=== PATIENT | female | born 1980 | race Caucasian/White ===

== ENCOUNTER → 2017-05-30 | Outpatient (CLI) | payer BC ==
[2017-05-30 13:03] LABS: Basophils % (A) 0 %; CH 32.2; CHCM 34.3; Eosinophils # (A) 0.2 k/uL (0-0.7); Eosinophils % (A) 2 %; HCT 46.4 % (34.0-46.0); HDW 2.28; HGB 15.2 gm/dL (11.4-16.0); Luc # (Auto) 0.19; Luc % (Auto) 2; Lymphocytes # (A) 2.9 k/uL (1.0-4.8); Lymphocytes % (A) 33 %; MCH 30.8 pg (25.0-35.0); MCHC 32.7 g/dL (31.0-37.0); Mean Platelet Volume 10.1; Monocytes # (A) 0.5 k/uL (0-1.0); Monocytes % (A) 5 %; Neutrophils # (A) 5.2 k/uL (1.3-7.7); Neutrophils % (A) 58 %; RBC 4.93 m/uL (3.80-5.40); RDW 13.8 % (11.5-15.5)
[2017-05-30 13:06] LABS: AST 17 U/L (14-36); Alkaline Phosphatase 71 U/L (38-126); Amylase 57 U/L (30-110); Blood Urea Nitrogen 13 mg/dL (7-17); Calcium 9.3 mg/dL (8.4-10.2); Chloride 109 mmol/L (98-107); Glucose 83 mg/dL (74-99); Non-African American GFR(MDRD) >60 (>60 ml/min/1.73 sqM); Potassium 4.1 mmol/L (3.5-5.1); Sodium 140 mmol/L (137-145); Total Bilirubin 0.4 mg/dL (0.2-1.3); Total Protein 7.2 g/dL (6.3-8.2)
[2017-05-30 13:14] LABS: ALT 34 U/L (9-52); Anion Gap 10 mmol/L; Carbon Dioxide 21 mmol/L (22-30)
--- NOTE | 2017-05-30 13:45 | US ---
EXAMINATION TYPE: US abdomen complete DATE OF EXAM: 05/30/2017 COMPARISON: NONE CLINICAL HISTORY: 37-year-old female R10.9 Abdominal Pain. Pt states ABD pain and vomiting TECHNIQUE: Multiple sonographic images of the abdomen are obtained. FINDINGS: Liver Length: 12.3 cm Gallbladder Wall: 0.5 cm CBD: 0.3 cm Spleen: 9.6 cm Right Kidney: 11.7 x 5.3 x 5.8 cm Left Kidney: 12.2 x 5.3 x 5.5 cm Pancreas: Only a small portion of the pancreatic neck is visualized. Remainder suboptimally visualiz ed secondary to shadowing from bowel gas. Liver: Somewhat hypoechoic. This may be on a technical basis. Gallbladder: While there is no abnormal gallbladder distention, numerous calculi fill the gallbladde r lumen. There is mild gallbladder wall thickening. No pericholecystic fluid. Evidence for sonographic Cooley's sign: Yes CBD: wnl Spleen: wnl Right Kidney: wnl Left Kidney: wnl Upper IVC: wnl Abd Aorta: wnl IMPRESSION: 1. Somewhat hypoechoic appearance to the liver may be on a technical basis. Correlate to exclude hepa titis. 2. Cholelithiasis with numerous calculi within the gallbladder. There is gallbladder wall thickening and positive sonographic Cooley sign. 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 HIDA scan if further imaging evaluation is indicated.
[2017-05-30 14:43] LABS: Erythrocyte Sedimentation Rate 8 mm/hr (0-20)
== END ==
LOC: RADUSWWP 12:20
PROVIDERS: ATTEND Family Medicine
DX: K80.20 Calculus of gallbladder without cholecystitis without obstruction (principal); K82.9 Disease of gallbladder, unspecified
CPT/HCPCS: 36415; 76700; 80053; 82150; 83690; 85025; 85652

== ENCOUNTER 2017-06-20 11:26 | Day surgery (SDC) | payer BC ==
[2017-06-12 09:13] VITALS: BMI 36.4
[~2017-06-20 11:26] MED LIST: DEXAMETHASONE SOD PHOSPHATE 10 MG/ML 1 ML VIAL IV ONE; HYDROmorphone 1 MG/ML 1 ML SYRINGE IVP PRN; LACTATED RINGERS 1,000 ML IV SCH; MIDAZOLAM 2 MG/2 ML VIAL IV PRN; ONDANSETRON 4 MG/2 ML VIAL IVP ONE; SCOPOLAMINE 1.5MG/72HR PATCH TRANSDERM ONE; ceFAZolin 2 GM in SODIUM CHLORIDE 0.9% 100 ML IVPB ONE
[2017-06-20 13:21] VITALS: TEMP 98.3
[2017-06-20] MEDS: LIDOCAINE 1% 20 ML VIAL (10MG/ML) FOR IV START INTRADERMA PRN ×2 (13:23→13:24)
[2017-06-20] MEDS ORDERED: LACTATED RINGERS 1,000 ML IV ONE ×2 (13:24→15:48)
[2017-06-20] MEDS ORDERED: HEPARIN SODIUM,PORCINE 5,000 UNIT/ML 1 ML VIAL SQ ONE (13:25)
[2017-06-20] MEDS ORDERED: HYDROmorphone (PF) 1 MG/ML ONE (14:05)
[2017-06-20] MEDS ORDERED: SUCCINYLCHOLINE CHLORIDE 100 MG/5 ML SYR IV ONE (14:05)
[2017-06-20] MEDS ORDERED: PROPOFOL 10 MG/ML 20 ML VIAL IV ONE (14:05)
[2017-06-20] MEDS ORDERED: GLYCOPYRROLATE 0.2 MG/ML 2 ML VIAL ONE (14:05)
[2017-06-20] MEDS ORDERED: ROCURONIUM BROMIDE 10 MG/ML 10 ML VIAL IV ONE (14:05)
[2017-06-20] MEDS ORDERED: LIDOCAINE 1% INJ 10MG/ML (20 ML MDV) ONE (14:05)
[2017-06-20] MEDS ORDERED: fentaNYL (PF) 50 MCG/ML 2 ML AMP ONE (14:05)
[2017-06-20] MEDS ORDERED: PHENYLEPHRINE-0.9% NACL SYG 1 MG/10 ML SYRINGE ONE (14:05)
[2017-06-20] MEDS ORDERED: NEOSTIGMINE 1 MG/ML 10 ML VIAL ONE (14:05)
[2017-06-20] MEDS ORDERED: LABETALOL 5 MG/ML VIAL MDV ONE (14:05)
[2017-06-20] MEDS ORDERED: MIDAZOLAM 2 MG/2 ML VIAL ONE (14:05)
[2017-06-20] MEDS ORDERED: BUPIVACAINE-EPI 0.5%-1:200,000 10 ML VIAL SQ ONE (14:34)
--- NOTE | 2017-06-20 16:24 | P.OP ---
Date of Procedure: 06/20/17 Preoperative Diagnosis: Chronic choelcystitis Postoperative Diagnosis: Chronic choelcystitis Procedure(s) Performed: Robot assisted laparoscpic choelcystectomy Implants: Anesthesia: GETA Pathology: other Indications for Procedure: Operative Findings: Description of Procedure: Patient is a 37-year-old female who presented with right upper quadrant pain and a clinical diagnosis of chronic cholecystitis was made. After appropriate informed consent and answering all the patient's questions patient taken the operating placement position and given general anesthesia with endotracheal intubation. After an unsuccessful attempt to use the Veress needle for insufflation at the [place] Optiview technique was used to enter the abdominal cavity. Once the abdomen insufflated 5 mm Optiview was used to enter the abdominal cavity through the left upper quadrant incision. Three 8 mm ports were then placed for the robot in the left upper quadrant and right upper quadrant. 12 mm camera port was placed supraumbilically to the right side. Once ports were then placed the patient was placed in appropriate position of left side down and reverse Trendelenburg. The robot was docked and Prograsp was taken in arm 3, cardiere in arm 2. Camera was through the 12 mm umbilical port site. And a hook cautery was taken in the arm 1. Gallbladder was retracted cephalad and superiorly. Inflammatory adhesions were taken down with the help of electrocautery. Appropriate critical view was obtained in cystic duct and artery were isolated. There was moderate amount of bleeding from the posterior branch of the cystic artery, which was controlled with the help of 4 x 4 and pressure. He was further controlled with the help of a cleft and electrocautery. Once that was done 2 clips proximally and 1 distally were plced in the artery and cystic duct and then and transected sharply with the help of scissors. The gallbladder was then taken off the gallbladder fossa with the help of electrocautery. Gallbladder was then placed in Endo Catch bag and removed through 12 port site after undocking the robot. Abdomen was then again visualized and completely irrigated and sucked dry. 12 mm port site was closed with the help of a Jer Bird under direct laparoscopic view using 0 Vicryl. At this point the procedure was terminated and all ports were removed. Local anesthesia infiltrated into the incisions skin was closed with 4 -0 Monocryl and Dermabond was applied. Patient is tolerated the porcedure well with no complications. She was extubated and taken to recovery room in stable condition.
[2017-06-20 16:38] VITALS: RESP 16
[2017-06-20] MEDS ORDERED: IBUPROFEN 200 MG TAB PO ONE (17:02)
[2017-06-20 17:20] VITALS: BP 114/64; PULSE 67
== END 2017-06-20 18:24 | disposition home or self-care (01) ==
LOC: OR 11:26
PROVIDERS: ATTEND Surgery
DX: K80.10 Calculus of gallbladder with chronic cholecystitis without obstruction (principal); J45.909 Unspecified asthma, uncomplicated; F17.200 Nicotine dependence, unspecified, uncomplicated; E88.81 Metabolic syndrome and other insulin resistance; Z79.899 Other long term (current) drug therapy; Z88.5 Allergy status to narcotic agent
CPT/HCPCS: 47562; S2900; 81025; 88304

== ENCOUNTER → 2018-12-02 | Outpatient (CLI) | payer BC ==
--- NOTE | 2018-12-03 08:33 | MM ---
Reason for exam: screening (asymptomatic). Last mammogram was performed 2 years and 8 months ago. History: Patient is nulliparous. Took hormonal contraceptives for 15 years. Took progesterone for 7 years. Physical Findings: A clinical breast exam by your physician is recommended on an annual basis and results should be correlated with mammographic findings. MG 3D Screening Mammo W/Cad Bilateral CC and MLO view(s) were taken. Prior study comparison: March 28, 2016, mammogram, performed at [facility]. September 06, 2015, mammogram, performed at [facility]. There are scattered fibroglandular densities. Benign appearing skin calcifications along the right infra mammary fold. No suspicious abnormality. No significant changes when compared with prior studies. ASSESSMENT: Benign, BI-RAD 2 RECOMMENDATION: Routine screening mammogram of both breasts in 1 year.
== END | disposition home or self-care (01) ==
LOC: RADMAMWWP 09:37
PROVIDERS: ATTEND Obstetrics & Gynecology
DX: Z12.31 Encounter for screening mammogram for malignant neoplasm of breast (principal)
CPT/HCPCS: 77063; 77067

== ENCOUNTER → 2020-04-13 | Outpatient (CLI) | payer BC ==
--- NOTE | 2020-04-14 11:16 | MM ---
Reason for exam: screening (asymptomatic). Last mammogram was performed 1 year and 4 months ago. History: Patient is nulliparous. Took hormonal contraceptives for 15 years. Took progesterone for 7 years. Physical Findings: A clinical breast exam by your physician is recommended on an annual basis and results should be correlated with mammographic findings. MG 3D Screening Mammo W/Cad Bilateral CC and MLO view(s) were taken. Prior study comparison: December 02, 2018, bilateral MG 3d screening mammo w/cad. March 28, 2016, mammogram, performed at [facility]. There are scattered fibroglandular densities. There is no discrete abnormality. No significant changes when compared with prior studies. ASSESSMENT: Negative, BI-RAD 1 RECOMMENDATION: Routine screening mammogram of both breasts in 1 year. Manage patient on a clinical basis.
== END | disposition home or self-care (01) ==
LOC: RADMAMWWP 10:49
PROVIDERS: ATTEND Obstetrics & Gynecology
DX: Z12.31 Encounter for screening mammogram for malignant neoplasm of breast (principal)
CPT/HCPCS: 77063; 77067

== ENCOUNTER → 2021-04-14 | Outpatient (CLI) | payer BC ==
--- NOTE | 2021-04-19 14:30 | MM ---
Reason for exam: screening (asymptomatic). Last mammogram was performed 1 year ago. History: Patient is nulliparous. Took hormonal contraceptives for 15 years. Taking progesterone for 7 years. Physical Findings: A clinical breast exam by your physician is recommended on an annual basis and results should be correlated with mammographic findings. MG 3D Screening Mammo W/Cad Bilateral CC and MLO view(s) were taken. Prior study comparison: April 13, 2020, bilateral MG 3d screening mammo w/cad. December 02, 2018, bilateral MG 3d screening mammo w/cad. There are scattered fibroglandular densities. There is chronic nodularity in the right breast. No significant changes when compared with prior studies. ASSESSMENT: Negative, BI-RAD 1 RECOMMENDATION: Routine screening mammogram of both breasts in 1 year.
== END | disposition home or self-care (01) ==
LOC: RADMAMWWP 10:57
PROVIDERS: ATTEND Obstetrics & Gynecology
DX: Z12.31 Encounter for screening mammogram for malignant neoplasm of breast (principal)
CPT/HCPCS: 77063; 77067

== ENCOUNTER → 2023-03-29 | Outpatient (CLI) | payer BC ==
--- NOTE | 2023-04-01 07:50 | MM ---
Reason for Exam: Screening (asymptomatic). Last mammogram was performed 1 year(s) and 11 month(s) ago. Patient History: Menarche at age 10. Patient has no children. Hysterectomy at age 41. Postmenopausal. Currently using Progesterone, for 7 years. Patient used Hormonal Contraceptives for 15 years. Risk Values: Esther 5 year model risk: 0.9%. NCI Lifetime model risk: 10.6%. Prior Study Comparison: 03/28/2016 Screening Mammogram, [facility]. 12/02/2018 Bilateral Screening Mammogram, [facility]. 04/13/2020 Bilateral Screening Mammogram, [facility]. 04/14/2021 Bilateral Screening Mammogram, [facility]. Tissue Density: The breast tissue is almost entirely fat. Findings: Analyzed By CAD. There is no suspicious group of microcalcifications or new suspicious mass in either breast. Overall Assessment: Negative, BI-RAD 1 Management: Screening Mammogram of both breasts in [address] [facility] will attempt to contact patient to return for supplemental views and ultrasound if indicated. Patient should continue monthly self-breast exams. A clinical breast exam by your physician is recommended on an annual basis. This exam should not preclude additional follow-up of suspicious palpable abnormalities. Note on Esther scores and lifetime risk: 1. A Esther score greater than 3% is considered moderate risk. If this is the case, consider specialist referral to assess eligibility for a risk reducing agent. 2. If overall lifetime risk for the development of breast cancer is 20% or higher, the patient may qualify for future screening with alternating mammogram and breast MRI. Electronically signed and approved by: Juan C Kessler DO
== END | disposition home or self-care (01) ==
LOC: RADMAMWWP 10:52
PROVIDERS: ATTEND Obstetrics & Gynecology
DX: Z12.31 Encounter for screening mammogram for malignant neoplasm of breast (principal); Z78.0 Asymptomatic menopausal state
CPT/HCPCS: 77063; 77067

== ENCOUNTER → 2024-05-01 | Outpatient (CLI) | payer BC ==
--- NOTE | 2024-05-05 08:01 | MM ---
Reason for Exam: Screening (asymptomatic). Last mammogram was performed 1 year(s) and 1 month(s) ago. Patient History: Menarche at age 10. Patient has no children. Hysterectomy at age 41. Currently using Progesterone, for 7 years. Patient used Hormonal Contraceptives for 15 years. Risk Values: Esther 5 year model risk: 0.9%. NCI Lifetime model risk: 10.5%. Prior Study Comparison: 03/28/2016 Screening Mammogram, [facility]. 12/02/2018 Bilateral Screening Mammogram, [facility]. 04/13/2020 Bilateral Screening Mammogram, [facility]. 04/14/2021 Bilateral Screening Mammogram, [facility]. 03/29/2023 Bilateral MG 3D screening mammo w/cad, [facility]. Tissue Density: There are scattered areas of fibroglandular density. Findings: Analyzed By CAD. There is no suspicious group of microcalcifications or new suspicious mass in either breast. Overall Assessment: Negative, BI-RAD 1 Management: Screening Mammogram of both breasts in 1 year. . Patient should continue monthly self-breast exams. A clinical breast exam by your physician is recommended on an annual basis. This exam should not preclude additional follow-up of suspicious palpable abnormalities. Note on Esther scores and lifetime risk: 1. A Esther score greater than 3% is considered moderate risk. If this is the case, consider specialist referral to assess eligibility for a risk reducing agent. 2. If overall lifetime risk for the development of breast cancer is 20% or higher, the patient may qualify for future screening with alternating mammogram and breast MRI. Electronically signed and approved by: Faisal Luo M.D. Radiologis
== END | disposition home or self-care (01) ==
LOC: RADMAMWWP 09:50
PROVIDERS: ATTEND Obstetrics & Gynecology
DX: Z12.31 Encounter for screening mammogram for malignant neoplasm of breast (principal); R92.323 Mammographic fibroglandular density, bilateral breasts; Z92.0 Personal history of contraception
CPT/HCPCS: 77063; 77067

== ENCOUNTER → 2025-05-14 | Outpatient (CLI) | payer BC ==
--- NOTE | 2025-05-14 17:54 | MM ---
Reason for Exam: Screening (asymptomatic). Last mammogram was performed 1 year(s) and 1 month(s) ago. Patient History: Menarche at age 10. Patient has no children. Hysterectomy at age 42. Patient used Progesterone for 7 years. Patient used Hormonal Contraceptives for 15 years. Risk Values: Esther 5 year model risk: 1.0%. NCI Lifetime model risk: 10.3%. Prior Study Comparison: 04/14/2021 Bilateral Screening Mammogram, [facility]. 03/29/2023 Bilateral MG 3D screening mammo w/cad, [facility]. 05/01/2024 Bilateral MG 3D screening mammo w/cad, [facility]. Tissue Density: There are scattered areas of fibroglandular density. Findings: Analyzed By CAD. Chronic nodularity right axillary tail. There is no suspicious group of microcalcifications or new suspicious mass in either breast. Overall Assessment: Benign, BI-RAD 2 Management: Screening Mammogram of both breasts in 1 year. . Patient should continue monthly self-breast exams. A clinical breast exam by your physician is recommended on an annual basis. This exam should not preclude additional follow-up of suspicious palpable abnormalities. Note on Esther scores and lifetime risk: 1. A Esther score greater than 3% is considered moderate risk. If this is the case, consider specialist referral to assess eligibility for a risk reducing agent. 2. If overall lifetime risk for the development of breast cancer is 20% or higher, the patient may qualify for future screening with alternating mammogram and breast MRI. [facility], , 05/14/2025 5:51 PM. Electronically signed and approved by: Shy Cespedes M.D. Radiologist
== END | disposition home or self-care (01) ==
LOC: RADMAMWWP 10:11
PROVIDERS: ATTEND Obstetrics & Gynecology
DX: Z12.31 Encounter for screening mammogram for malignant neoplasm of breast (principal); R92.323 Mammographic fibroglandular density, bilateral breasts; Z92.0 Personal history of contraception
CPT/HCPCS: 77063; 77067